=== PATIENT | female | born 1990 | race Caucasian/White ===

== ENCOUNTER 2020-02-23 20:46 | Emergency (ER) | payer OTHER, MEDICAID ==
[~2020-02-23] VITALS: Ht 157.5 cm; Wt 83.5 kg
[~2020-02-23 20:46] MED LIST: BENADRYL25 MG PO; BENTYL 10 MG CA10 M1 PO; CIPRO500 M1 PO; FLAGYL500 M1 PO; LOMOTIL TABLET1 EACH PO; MELATONIN10 M3 PO; NAPROSYN500 MG PO; ROBAXIN 750 MG750 M1 PO; TRINESSA1 EACH PO; VALTREX 500 MG500 M1 PO; VENLAFAXINE H37.5 M2 PO; VITAMIN D21250 MC1 PO; ZOFRAN4 MG PO; ZYRTEC 10 MG TA10 MG PO
[2020-02-23 22:23] LABS: URINE BLOOD NEGATIVE (Negative); URINE CLARITY CLEAR; URINE COLOR YELLOW; URINE GLUCOSE-RANDOM NEGATIVE (Negative); URINE LEUKOCYTES-REFLEX NEGATIVE (Negative); URINE NITRITE-REFLEX NEGATIVE (Negative); URINE PROTEIN 1+ (Negative); URINE SPECIFIC GRAVITY >= 1.030 (1.005-1.030)
[2020-02-23 22:26] LABS: ICTOTEST (BILI CONFIRMATORY) Negative (Negative); URINE BILIRUBIN 2+ (Negative); URINE KETONES 3+ (Negative)
[2020-02-23 22:36] LABS: ABSOLUTE BASOPHILS 0.1 thou/uL (0.0-0.2); ABSOLUTE EOSINOPHILS 0.1 thou/uL (0.0-0.7); ABSOLUTE LYMPHOCYTES 2.6 thou/uL (0.8-5.3); ABSOLUTE MONOCYTES 0.8 thou/uL (0.0-1.2); ABSOLUTE NEUTROPHILS 5.5 thou/uL (1.6-8.1); BASOPHILS 1.2 %; EOSINOPHILS 1.5 %; HEMATOCRIT 43.2 % (37.0-47.0); LYMPHOCYTES 28.3 %; MCH 31.4 pg (26.0-34.0); MCHC 34.8 g/dL (28.0-37.0); MCV 90.2 fL (80.0-100.0); MPV 10.4 fl. (7.2-11.1); NUCLEATED RBCS 0 /100WBC; PLATELET COUNT* 249 thou/uL (150-400); RBC 4.79 mil/uL (4.20-5.00); WBC 9.1 thou/uL (4.0-11.0)
[2020-02-23 22:45] LABS: CALCIUM 8.8 mg/dL (8.5-10.1); CREATININE 0.9 mg/dL (0.6-1.3)
[2020-02-23 22:49] LABS: ALBUMIN 4.3 g/dL (3.4-5.0); TOTAL BILIRUBIN 0.9 mg/dL (<0.1-1.0); TOTAL PROTEIN 7.9 g/dL (6.4-8.2)
[2020-02-24] MEDS ORDERED: ZOFRAN ODT4 MG PO (00:44)
[2020-02-24] MEDS ORDERED: FLAGYL500 M1 PO (00:44)
[2020-02-24 00:55] VITALS: BP 122/67
--- NOTE | 2020-02-24 10:06 | EKG ---
[place] [address] ELECTROCARDIOGRAM REPORT Name: KIRT SCOTT Room: [facility]#: [id number] Admission: 02/23/20 Attend Phys: Discharge: 02/24/20 Date of : 86 Date of Service: 02/23/202236 Report #: [id number] THIS REPORT FOR: //name// [facility] ED Test Date: 2020-02-23 Test Time: 22:37:26 Pat Name: KIRT SCOTT Department: Room: Gender: Performance Consultant: WILLIAM : 1990 Requested By: Joanne Magallanes Order Number: [id number] MD: Albino Aguila Measurements Intervals [place] Rate: 68 P: 31 RI: 149 QRS: 24 QRSD: 94 T: 6 QT: 391 QTc: 416 Interpretive Statements Sinus rhythm Compared to ECG 12/30/2019 12:24:35 no change Electronically Signed On 02-24-2020 10:06:37 ORDER SCHEDULE CLERK by Albino Aguila [email or web address] <ELECTRONICALLY SIGNED> By: Albino Aguila MD, [facility] 02/24/20 1006 36 36 Albino Aguila MD, [facility] /EPI
== END 2020-02-24 00:55 | disposition home or self-care (01) ==
LOC: M.ERS 20:46
PROVIDERS: Nurse Practitioner Family
DX: R11.2 Nausea with vomiting, unspecified (principal); R19.7 Diarrhea, unspecified; R10.30 Lower abdominal pain, unspecified; Z88.1 Allergy status to other antibiotic agents; Z79.899 Other long term (current) drug therapy; Z90.710 Acquired absence of both cervix and uterus

== ENCOUNTER 2021-02-25 16:03 | Emergency (ER) | payer OTHER, MEDICAID ==
[~2021-02-25] VITALS: Ht 157.5 cm; Wt 91.2 kg
[~2021-02-25 16:03] MED LIST changes: +ZOFRAN ODT4 MG PO
[2021-02-25] MEDS ORDERED: PROTONIX40 M4 PO (16:29)
[2021-02-25] MEDS ORDERED: FLEXERIL PO (16:29)
[2021-02-25] MEDS ORDERED: BENTYL 10 MG CA10 MG PO (16:30)
[2021-02-25] MEDS ORDERED: HYDROXYZINE HCL25 M2 PO (16:30)
[2021-02-25 16:33] LABS: URINE BILIRUBIN NEGATIVE (Negative); URINE BLOOD NEGATIVE (Negative); URINE CLARITY CLEAR; URINE COLOR YELLOW; URINE GLUCOSE-RANDOM NEGATIVE (Negative); URINE KETONES NEGATIVE (Negative); URINE LEUKOCYTES-REFLEX NEGATIVE (Negative); URINE NITRITE-REFLEX NEGATIVE (Negative); URINE PROTEIN NEGATIVE (Negative); URINE SPECIFIC GRAVITY 1.025 (1.005-1.030)
[2021-02-25 16:47] LABS: ABSOLUTE BASOPHILS 0.1 thou/uL (0.0-0.2); ABSOLUTE EOSINOPHILS 0.1 thou/uL (0.0-0.7); ABSOLUTE LYMPHOCYTES 2.3 thou/uL (0.8-5.3); ABSOLUTE MONOCYTES 0.6 thou/uL (0.0-1.2); ABSOLUTE NEUTROPHILS 4.1 thou/uL (1.6-8.1); BASOPHILS 1.3 %; EOSINOPHILS 1.6 %; HEMATOCRIT 41.3 % (37.0-47.0); HEMOGLOBIN 14.5 gm/dL (12.0-15.0); LYMPHOCYTES 31.7 %; MCH 31.5 pg (26.0-34.0); MONOCYTES 7.7 %; MPV 9.3 fl. (7.2-11.1); NUCLEATED RBCS 0 /100WBC; PLATELET COUNT* 285 thou/uL (150-400); POLYS 57.7 %; RBC 4.59 mil/uL (4.20-5.00); RDW-CV 12.5 % (10.5-14.5); WBC 7.1 thou/uL (4.0-11.0)
[2021-02-25 16:53] LABS: CALCIUM 8.2 mg/dL (8.5-10.1); CREATININE 0.8 mg/dL (0.6-1.3); POTASSIUM 3.9 mmol/L (3.5-5.1)
[2021-02-25 16:57] LABS: ALBUMIN 3.7 g/dL (3.4-5.0); TOTAL BILIRUBIN 0.5 mg/dL (<0.1-1.0)
[2021-02-25] MEDS ORDERED: HYDROCODON-ACE1 EAC7 PO (18:00)
[2021-02-25] MEDS ORDERED: ZOFRAN ODT4 MG DISSOLVE (18:00)
[2021-02-25 18:17] VITALS: BP 133/83
== END 2021-02-25 18:18 | disposition home or self-care (01) ==
LOC: M.ERS 16:03
PROVIDERS: Emergency Medicine Emergency Medical Services
DX: R10.32 Left lower quadrant pain (principal); Z20.822 Contact with and (suspected) exposure to COVID-19; F41.9 Anxiety disorder, unspecified; F32.9 Major depressive disorder, single episode, unspecified; K21.9 Gastro-esophageal reflux disease without esophagitis; Z98.890 Other specified postprocedural states; Z90.710 Acquired absence of both cervix and uterus; Z90.89 Acquired absence of other organs; Z79.899 Other long term (current) drug therapy; Z88.0 Allergy status to penicillin; Z88.1 Allergy status to other antibiotic agents

== ENCOUNTER 2021-04-05 16:23 | Emergency (ER) | payer OTHER, MEDICAID ==
[~2021-04-05] VITALS: Ht 157.5 cm; Wt 96.2 kg
[~2021-04-05 16:23] MED LIST changes: +BENTYL 10 MG CA10 MG PO; +FLEXERIL PO; +HYDROCODON-ACE1 EAC7 PO; +HYDROXYZINE HCL25 M2 PO; +PROTONIX40 M4 PO; +ZOFRAN ODT4 MG DISSOLVE
[2021-04-05] MEDS ORDERED: TRAZODONE HCL50 MG PO (16:52)
[2021-04-05] MEDS ORDERED: XIFAXAN 200 MG200 MG PO (16:53)
[2021-04-05 17:45] LABS: ABSOLUTE LYMPHOCYTES 0.6 thou/uL (0.8-5.3); ABSOLUTE MONOCYTES 0.6 thou/uL (0.0-1.2); ABSOLUTE NEUTROPHILS 4.4 thou/uL (1.6-8.1); BASOPHILS 0.7 %; EOSINOPHILS 0.5 %; HEMATOCRIT 43.6 % (37.0-47.0); HEMOGLOBIN 14.9 gm/dL (12.0-15.0); LYMPHOCYTES 10.2 %; MCH 31.7 pg (26.0-34.0); MCHC 34.2 g/dL (28.0-37.0); MCV 92.8 fL (80.0-100.0); MONOCYTES 11.3 %; MPV 9.1 fl. (7.2-11.1); NUCLEATED RBCS 0 /100WBC; PLATELET COUNT* 223 thou/uL (150-400); POLYS 77.3 %; WBC 5.7 thou/uL (4.0-11.0)
[2021-04-05 18:49] LABS: CALCIUM 8.4 mg/dL (8.5-10.1); CREATININE 0.9 mg/dL (0.6-1.3); POTASSIUM 3.8 mmol/L (3.5-5.1)
[2021-04-05 18:53] LABS: TOTAL BILIRUBIN 0.4 mg/dL (<0.1-1.0); TOTAL PROTEIN 7.3 g/dL (6.4-8.2)
[2021-04-05 19:21] LABS: URINE BILIRUBIN NEGATIVE (Negative); URINE BLOOD NEGATIVE (Negative); URINE CLARITY CLEAR; URINE COLOR YELLOW; URINE GLUCOSE-RANDOM NEGATIVE (Negative); URINE KETONES TRACE (Negative); URINE LEUKOCYTES-REFLEX NEGATIVE (Negative); URINE NITRITE-REFLEX NEGATIVE (Negative); URINE PROTEIN NEGATIVE (Negative)
[2021-04-05] MEDS ORDERED: ZPAK PO (19:51)
[2021-04-05 20:04] VITALS: BP 152/80
== END 2021-04-05 20:05 | disposition home or self-care (01) ==
LOC: M.ERS 16:23
PROVIDERS: Physician Assistant
DX: R10.84 Generalized abdominal pain (principal); R50.9 Fever, unspecified; R05.9 Cough, unspecified; R11.0 Nausea; R19.7 Diarrhea, unspecified; J02.9 Acute pharyngitis, unspecified; F41.9 Anxiety disorder, unspecified; F32.9 Major depressive disorder, single episode, unspecified; K21.9 Gastro-esophageal reflux disease without esophagitis; Z96.22 Myringotomy tube(s) status; Z90.711 Acquired absence of uterus with remaining cervical stump; Z79.899 Other long term (current) drug therapy; Z88.1 Allergy status to other antibiotic agents